=== PATIENT | male | born 1975 | race Caucasian/White ===

== ENCOUNTER 2022-07-24 08:30 | Emergency (ER) | payer BC, SELFPAY ==
[2022-07-24 08:43] VITALS: BP 142/94; PULSE 105; RESP 16; TEMP 36.4; O2SAT 98
--- NOTE | 2022-07-24 08:53 | ED.GENADULT ---
HPI - General Adult General Chief complaint: Upper Respiratory Infection Stated complaint: sore throat Source: patient Mode of arrival: ambulatory Limitations: no limitations History of Present Illness HPI narrative: Patient presents for evaluation of sore throat since yesterday. No fever, chills, nausea, vomiting, cough, shortness of breath. A child of his coworker had strep last week. He tried sudafed without considerable improvement in his symptoms thereafter. No additional complaints or concerns. Related Data Home Medications Medication Instructions Recorded Confirmed aspirin 81 mg tablet,delayed 81 mg PO DAILY 09/14/21 07/24/22 release (Adult Aspirin Regimen) cetirizine 10 mg tablet (Zyrtec) 10 mg PO DAILY PRN Allergy Symptoms 09/14/21 07/24/22 multivitamin 1 tablet PO DAILY 09/14/21 07/24/22 rosuvastatin 20 mg tablet (Crestor) 20 mg PO DAILY 09/14/21 07/24/22 Allergies Allergy/AdvReac Type Severity Reaction Status Date / Time No Known Allergies Allergy Verified 07/24/22 08:38 Review of Systems Review of Systems: CONSTITUTIONAL: Denies fever, chills, or sweats. EYES: Denies visual changes, redness, or discharge. ENT: Reports sore throat. Denies rhinorrhea, congestion, or otalgia. CARDIOVASCULAR: Denies chest pain, palpitations, or edema. RESPIRATORY: Denies cough or dyspnea. GASTROINTESTINAL: Denies abdominal pain, nausea, vomiting, or diarrhea. GENITOURINARY: Denies dysuria or hematuria. SKIN: Denies rash or itching. MUSCULOSKELETAL: Denies back pain, joint pain, or myalgia. NEUROLOGIC: Denies headache, numbness, dizziness, or weakness. PSYCHIATRIC: Denies anxiety or depression. [facility] Past Medical History Medical History No pertinent past medical history Surgical History Surgical History No pertinent past surgical history Family History Family History Mother Family history non-contributory Social History Social History Smoking status: Never smoker Substance use: never Gender identity (if verbalized by the patient): Male Spiritual care concerns: No Exam Narrative: GENERAL: Well-appearing, well-nourished, and in no acute distress. HEAD: Normocephalic, atraumatic. EYES: PERRLA and EOMI. ENT: Nares clear, no rhinorrhea or epistaxis. Mucous membranes moist. There is mild bilateral tonsillar enlargement without considerable erythema. No exudate. Uvula is midline. Bilateral TMs pearly peace nonbulging NECK: Supple. No adenopathy or masses. No carotid bruits or JVD CHEST: Clear to auscultation. No respiratory distress. No wheezes rales or rhonchi HEART: Regular rate and rhythm. No murmur heard. Normal peripheral pulses. ABDOMEN: Soft, nontender, nondistended, normal active bowel sounds. EXTREMITIES: Normal range of motion. No edema. SKIN: Warm, dry, no rash. NEURO: No focal deficits. Alert and oriented x3. PSYCH: Normal mood and affect. Course Course Emergency Course: This is a 46-year-old male who presented for evaluation of sore throat after recent strep exposure. Rapid strep was negative, although old treat with amoxicillin due to recent exposure. Increase hydration. [id number] agents for symptom management. Follow up with primary provider. Go to the ER for worsening symptoms. Patient in agreement with plan of care. Level of Care: Express Care Visit Vital Signs Vital signs: Vital Signs Temperature 36.4 C 07/24/22 08:43 Pulse Rate 105 H 07/24/22 08:43 Respiratory Rate 16 07/24/22 08:43 Blood Pressure 142/94 H 07/24/22 08:43 Pulse Oximetry 98 07/24/22 08:43 Temperature 36.4 C 07/24/22 08:43 Pulse Rate 105 H 07/24/22 08:43 Respiratory Rate 16 07/24/22 08:43 Blood Pressure 142/94 H 07/24/22
== END 2022-07-24 08:55 | disposition home or self-care (01) ==
PROVIDERS: Emergency Provider Nurse Practitioner; PCP Family Medicine
DX: J02.9 Acute pharyngitis, unspecified (principal); Z79.82 Long term (current) use of aspirin; Z20.828 Contact with and (suspected) exposure to other viral communicable diseases
CPT/HCPCS: 87081; 87880; 99213; G0463

== ENCOUNTER 2024-07-12 09:17 | Outpatient (CLI) | payer OTHER, SELFPAY ==
--- NOTE | 2024-07-12 09:19 | ECG_ITS ---
Test Date: 2024-07-12 09:57:18 Measurements Intervals [place] Rate: 73 P: 39 NH: 165 QRS: 77 QRSD: 87 T: 40 QT: 343 QTc: 379 Interpretive Statements SINUS RHYTHM No previous ECG available for comparison Electronically Signed On 07-15-2024 18:01:06 CITY DIRECTOR by Mariama Camacho M.D.
== END 2024-07-12 09:18 | disposition home or self-care (01) ==
LOC: ANHLAB 09:19
PROVIDERS: PCP Family Medicine; Visit Provider Anesthesiology
DX: E78.5 Hyperlipidemia, unspecified (principal); K40.90 Unilateral inguinal hernia, without obstruction or gangrene, not specified as recurrent; Z01.818 Encounter for other preprocedural examination
CPT/HCPCS: 36415; 86850; 86900; 86901; 93005

== ENCOUNTER 2024-07-16 01:22 | Day surgery (SDC) | payer OTHER, SELFPAY ==
[2024-07-10 09:28] VITALS: BMI 32.0
--- NOTE | 2024-07-10 09:34 | PC.NURSE ---
Report to the Outpatient Waiting Room, entrance under the green pavilion located off [facility], at time _0600_ on date _[id number]_. Planned Procedure Time: _0730_.? Time changes happen often and if your time is changed the preop area will call you the afternoon before. - You and your visitor will be asked to self-screen and do not enter if you have any COVID symptoms. Please call surgeon if you need to reschedule. - A mask is optional within the hospital at this time. Patients may have clear liquids (water, carbonated beverages, clear teas, apple juice) until 3 hours prior to surgery with a maximum of 20 ounces. - No food from midnight until time of surgery and no smoking. This includes no chewing gum, candy or mints. Take only the following medications with a SIP of water on the morning of surgery: ___None DO NOT STOP ANY OF YOUR OTHER PRESCRIPTION MEDICATIONS PRIOR TO SURGERY EXCEPT THE FOLLOWING Medications to discontinue per physician ____Multivitamin Date to take last knzg____[id number]___Ky to continue Aspirin but please call 's office about Mesalamine if Ok to take. Please no make-up, nail lebanese, hairspray, perfume, deodorant, or body powder the day of surgery.? No jewelry (including any body piercings) or valuables the day of surgery, leave them at home.? Please take a shower or bath the night before, or the morning of, surgery with an antibacterial soap.? Wear comfortable, loose fitting clothing.? - Jewelry must be removed prior to entering the operating room.? Rings and piercings that are not removed may be cut off. - The hospital will not accept responsibility for valuables.? - Please leave all valuables, including medications, at home the day of surgery. If you are going home after surgery, a licensed lease purchase driver must drive you home.? - NO public transportation without another adult if you receive anesthesia. - We recommend that an adult stay with you for 24 hours following discharge. - We also recommend that you do not drive, make important decision, drink alcoholic beverages, or take any drugs that were not prescribed by your health care provider for at least 24 hours after your discharge time. Follow any additional instructions given to you from your surgeon. Telephone instructions given to __David__and asked if any additional questions and then verbalized understanding. Patient advised to call surgeon office or pre surgery nurse liaison [phone] if any additional questions.
[2024-07-16] VITALS (9 sets, daily range): BP systolic 122–138; BP diastolic 71–82; PULSE 67–98; RESP 12–16; TEMP 36.1–36.3; O2SAT 95–99; BMI 32.4
--- NOTE | 2024-07-16 06:59 | WPDANESEPPF ---
Anes - Initial Pre Proc Eval Procedure: Operation Date: 07/16/24 07:30 Proposed Procedures p Laparoscopic Left Inguinal Hernia Repair with Mesh, Davinci Assisted - Tio Lira DO Date/Time: 07/16/24 06:59 Surgeon: Tio Lira DO Pre Op Diagnosis: Lt ing Hernia Patient Data Age: 48 Gender: M Height: 1.73 m Weight: 95.5 kg Allergies Allergy/AdvReac Type Severity Reaction Status Date / Time No Known Allergies Allergy Verified 07/10/24 09:27 Home Medications ?Medication ?Instructions ?Recorded ?Confirmed ?Type aspirin 81 mg tablet,delayed 81 mg PO DAILY 09/14/21 07/10/24 History release (Adult Aspirin Regimen) cetirizine 10 mg tablet (Zyrtec) 10 mg PO DAILY PRN Allergy Symptoms 09/14/21 07/10/24 History multivitamin 1 tablet PO DAILY 09/14/21 07/10/24 History mesalamine 1.2 gram tablet,delayed See Rx Instructions .Route 12/05/23 07/10/24 Rx release .COMPLEX #180 tabs rosuvastatin 20 mg tablet 20 mg PO DAILY #90 tabs 02/03/24 07/10/24 Rx Patient hx anesthesia problems: none Family hx anesthesia problems: none Results Review: All pre-operative results and documents have been reviewed as part of the pre-operative evaluation. [facility] Past Medical History Medical History Hyperlipidemia Abnormal fasting glucose Family history of heart disease Allergic rhinitis Irritable bowel syndrome Ulcerative colitis Surgical History Surgical History History of hernia repair 1994 at age 18 Family History Family History Mother Hypertension Vertigo Father Hypertension Pituitary tumor Heart disease Grandparent Acute myocardial infarction Heart disease Cerebrovascular accident Diabetes mellitus Congestive heart failure Sibling , Had heart attack at age 56 Acute myocardial infarction Social History Social History Smoking status: Never smoker Alcohol intake: current Drinks per week: 5 Substance use: never Do You Feel Safe in your Home?: Yes Lack of Transportation: No Lack of Food: Never True Current Housing: I Have Housing Difficulty Paying Gas/Electric Bills: No Difficulty Paying for Meds: No Currently Unemployed: No Education: Bachelor's Degree Difficulty w/ Childcare or Family Care: No Living arrangements: with family Occupation/Education: occupation 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 Gender identity (if verbalized by the patient): Male Sexual Orientation (if Verbalized by the Patient): Straight or Heterosexual Spiritual care concerns: No Anes - Eval Final PreProcedure Day of Procedure 07/16/24 06:59 Patient weight: obese Heart: regular rate and rhythm Lungs: clear to auscultation Airway: Mallampati scale class II Neurological: alert and oriented Last oral intake: >/= 8 hours ASA classification: III Emergent: no Anesthetic plan: proceed Anesthesia type and monitoring: general ETT and standard monitoring Results Review: All pre-operative results and documents have been reviewed as part of the pre-operative evaluation. Informed Consent: The patient's anesthetic plan and its attendant risks and benefits were discussed with the patient/family/POA. Questions were solicited and answers provided to the satisfaction of the patient/family/POA.
[2024-07-16] MEDS: LACTATED RINGERS 1,000 ML 30 ML IV CONT ×2 (07:00→08:32)
[2024-07-16] MEDS: KETOROLAC 15 MG/ML VIAL (*BKC) IV PUSH (07:07)
[2024-07-16] MEDS: ACETAMINOPHEN 500 MG TABLET 1000 MG PO (07:07)
--- NOTE | 2024-07-16 07:11 | WPDHPUPDATE1 ---
History and Physical Update Update Date/Time: 07/16/24 07:11 History and Physical has been reviewed, including an updated exam of the patient. There are NO changes in the patient's condition. Risks, benefits, and alternatives have been discussed and questions answered. Patient agrees to proceed with procedure.
--- NOTE | 2024-07-16 07:11 | PM.IMHP ---
H&P: HPI History of Present Illness Date/Time: 07/16/24 07:11 Chief Complaint: LIH Narrative: 48 yo man presents for LIH repair. He reports no changes since last seen in office. Review of Systems Review of Systems: All systems reviewed & are unremarkable except as noted in HPI and below Constitutional: Constitutional: Denies chills, Denies fever(s), Denies headache(s) and Denies weight loss Eyes: Eyes: Denies change in vision ENT: Denies dizziness, Denies headache(s), Denies neck mass and Denies throat swelling Cardiovascular: Cardiovascular: Denies chest pain, Denies lightheadedness and Denies dyspnea Respiratory: Respiratory: Denies cough, Denies dyspnea and Denies wheezing Gastrointestinal: Gastrointestinal: Denies abdominal pain, Denies change in bowel habits, Denies nausea and Denies vomiting Genitourinary: Genitourinary: Denies hematuria and Denies dysuria Musculoskeletal: Musculoskeletal: Reports as per HPI Integumentary/Breasts: Skin/Breast: Reports as per HPI Neurologic: Denies dizziness and Denies headache(s) Allergic/Immunologic: Allergic/Immunologic: Denies throat swelling and Denies wheezing [facility] Past Medical History Medical History Hyperlipidemia Abnormal fasting glucose Family history of heart disease Allergic rhinitis Irritable bowel syndrome Ulcerative colitis Surgical History Surgical History History of hernia repair 1993 at age 18 Family History Family History Mother Hypertension Vertigo Father Hypertension Pituitary tumor Heart disease Grandparent Acute myocardial infarction Heart disease Cerebrovascular accident Diabetes mellitus Congestive heart failure Sibling , Had heart attack at age 56 Acute myocardial infarction Social History Social History Smoking status: Never smoker Alcohol intake: current Drinks per week: 5 Substance use: never Do You Feel Safe in your Home?: Yes Lack of Transportation: No Lack of Food: Never True Current Housing: I Have Housing Difficulty Paying Gas/Electric Bills: No Difficulty Paying for Meds: No Currently Unemployed: No Education: Bachelor's Degree Difficulty w/ Childcare or Family Care: No Living arrangements: with family Occupation/Education: occupation 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 Gender identity (if verbalized by the patient): Male Sexual Orientation (if Verbalized by the Patient): Straight or Heterosexual Spiritual care concerns: No Meds Home Medications and Allergies Home Medications ?Medication ?Instructions ?Recorded ?Confirmed ?Type aspirin 81 mg tablet,delayed 81 mg PO DAILY 09/14/21 07/10/24 History release (Adult Aspirin Regimen) cetirizine 10 mg tablet (Zyrtec) 10 mg PO DAILY PRN Allergy Symptoms 09/14/21 07/10/24 History multivitamin 1 tablet PO DAILY 09/14/21 07/10/24 History mesalamine 1.2 gram tablet,delayed See Rx Instructions .Route 12/05/23 07/10/24 Rx release .COMPLEX #180 tabs rosuvastatin 20 mg tablet 20 mg PO DAILY #90 tabs 02/03/24 07/10/24 Rx Allergies Allergy/AdvReac Type Severity Reaction Status Date / Time No Known Allergies Allergy Verified 07/10/24 09:27 Exam Const: General: no acute distress and alert Orientation/consciousness: patient oriented x3 HENMT: Head: normocephalic and atraumatic Ears: hearing grossly normal bilaterally Face/Nose/Sinus: Normal nares present Mouth: Yes Normal oral and palatal mucosa present Eyes: Periorbital: periorbital findings normal Sclera: sclerae normal EOM: EOMs intact bilaterally Neck: Neck: normal visual inspection, no lymphadenopathy and trachea midline Chest: Chest palpation & inspection: normal inspection of the chest Resp: Effort & Inspection: normal respiratory effort Auscultation: clear to auscultation bilaterally Cardio: Jugular venous distension: no JVD Rate: regular rate Rhythm: regular rhythm Heart sounds: S1 normal heart sound present and S2 normal heart sound present Peripheral pulses: Peripheral pulses 2+ throughout GI: Inspection: normal to inspection GI Palp: Yes Soft to palpation, No Tenderness to palpation present (GI), No Guarding due to palpation present (GI) and No Rebound tenderness present Percussion: Yes normal to percussion Auscultation: normal bowel sounds : General: Yes no CVA tenderness Scrotum: inguinal hernia on the left Back/Spine/Pelvis: Back: no CVA tenderness Neuro: General: patient oriented x3, no focal motor deficits and CN's II-XI intact bilaterally Cognition (Neuro): normal cognition Speech: normal speech Motor exam (neuro): 5/5 motor strength present throughout Extrem: General: capillary refill normal and no clubbing, cyanosis or edema Assessment and Plan Assessment and plan (1) Left inguinal hernia: Code(s): K40.90 - Unilateral inguinal hernia, without obstruction or gangrene, not specified as recurrent Status: Acute Assessment and Plan: I have recommended laparoscopic left inguinal hernia repair with mesh, da shannon assisted. I have discussed the procedure, risks, benefits, and alternatives with the patient. All questions answered. No changes since last seen in office.
[2024-07-16] MEDS: ceFAZolin 2 GM/D5W 50 ML 2 GM/50 ML BAG IVPB (07:25)
[2024-07-16] MEDS: BUPIVACAINE/EPINEPHRINE 0.5% 10 ML VIAL 30 ML INFILTRATE (07:54)
--- NOTE | 2024-07-16 08:45 | P.OP_ITS ---
Procedure Note - Detailed Date of Procedure 07/16/24 Pre-op Diagnosis Left inguinal hernia Post-op Diagnosis Same (Pantaloon left inguinal hernia) Procedure Performed Laparoscopic left inguinal hernia repair with mesh, da Jatinder assisted Surgeon Tio Lira DO Anesthesia General and Local (0.5% bupivacaine with epinephrine) Indications This is a 48-year-old man who presented with a left inguinal hernia. He 1st noticed symptoms about 3 months ago. He had a noticeable bulge and slight discomfort associated with it. He denies any recent injuries that would have caused this. He was found to have a reducible left inguinal hernia on exam. Discussions were made with the patient about treatment options and decision was made to proceed with robotic assisted laparoscopic left inguinal hernia repair with mesh. Findings Robotic assisted laparoscopic left inguinal hernia repair with mesh was performed. The patient was found have a pantaloon left inguinal hernia. He had a small indirect component but a slightly larger direct component to this hernia. There was no evidence of a right inguinal hernia. A robotic transabdominal preperitoneal approach was utilized for repair of the left inguinal hernia. Once a wide enough preperitoneal pocket was created and the hernia sac was reduced, I then placed a large left 3DMax mid mesh overlying the entire left myopectineal orifice. No specimens were obtained for pathology. Description of Procedure Procedure as well as risks, benefits, and alternatives were discussed with the patient. Written consent was obtained and placed in chart prior to procedure. Patient was brought back to surgical suite. He was placed supine on operating table. Time-out was done to confirm patient and procedure. He was then intubated by Anesthesia Department. His abdomen was prepped and draped in sterile fashion using chlorhexidine prep. 0.5% bupivacaine with epinephrine was infiltrated at each location for incision. An 8 mm incision was made in the left lateral abdomen, and a 5 mm Optiview trocar was advanced through the abdominal layers under direct visualization. Once inside the abdominal cavity, carbon dioxide insufflation was used to create a pneumoperitoneum. A camera was inserted and the abdominal cavity was inspected. The patient was placed in slight Trendelenburg position. An 8 millimeter incision was made on the right lateral abdomen and an 8 millimeter trocar was inserted under direct visualization. Another 8 millimeter incision was made just superior to the umbilicus and an 8 millimeter trocar was inserted under direct visualization. The 5 mm port was then removed and this was replaced with another 8 mm robotic port. The robotic arms were brought up to the patient's bedside and secured to the ports. The camera and instruments were inserted. I then moved over to the robotic console and took control of the camera and instruments. After careful inspection of the abdominal cavity, I began scoring the peritoneum along the l eft lower quadrant using scissors with electrocautery. The preperitoneal plane was entered and this was carefully dissected caudally along the inferior epigastric vessels. Careful dissection with scissors with electrocautery and blunt dissection was used to continue this dissection. I dissected far enough laterally to allow for mesh placement, and also dissected medially to identify the pubic arch and Heath's ligament. The hernia sac was identified and carefully dissected posteriorly. The cord contents were also identified and the peritoneum was carefully dissected far enough posteriorly to allow for mesh placement. Once an adequate pocket was created, I then placed the mesh within the preperitoneal pocket and carefully unfolded it. The mesh was centered on the hernia defect with adequate overlap circumferentially. The inferior edge of the mesh was inspected to ensure that it was far enough away from the peritoneal edge. The mesh appeared in proper position overlying the entire myopectineal orifice. The mesh was secured using 3-0 Vicryl simple interrupted sutures in Heath's ligament, the superior medial edge, and superior lateral edge of the mesh. The peritoneum was then closed over the mesh using a 3-0 V-lock running absorbable suture. The robotic instruments were removed. The robotic arms were disengaged from the ports and moved away from the bedside. The patient was flattened out in bed, the ports were removed under direct visualization, and the pneumoperitoneum was released. The skin of the incisions was approximated using 4-0 Monocryl subcuticular suture, and Exofin glue was applied on top. The patient was awakened from anesthesia, extubated, and transferred to recovery. Implants Large left 3DMax mid mesh Estimated Blood Loss 5 Complications No immediate complications Condition Stable Disposition Same day [facility] Billing Surgery - Charge Forward: Surgery Billing
[2024-07-16] MEDS: fentaNYL CITRATE INJ (*CRX) 100 MCG/2 ML VIAL 25 MCG IV PUSH (08:53)
--- NOTE | 2024-07-16 09:48 | SUR.PHASEII ---
MD Shore contacted - pt requesting oxycodone prior to discharge. Pt order is currently for 5mg liquid PO. New orders for RN to give oxycodone 5mg PO in tablet form per pt preference.
[2024-07-16] MEDS: oxyCODONE HCL (*CRX) 5 MG TAB IR PO (09:58)
--- NOTE | 2024-07-16 10:13 | SUR.PHASEII ---
MD Lira contacted in OR - pt pharmacy ([facility] in [place]) states that they are out of stock of pain prescription. Patient requests that pain prescription be transferred to [facility] in [place], [place] instead.
--- NOTE | 2024-07-16 10:14 | SUR.PHASEII ---
Pt ambulated to bathroom and voided unmeasured amt of clear yellow urine without difficulty.
== END 2024-07-16 10:37 | disposition home or self-care (01) ==
PROVIDERS: PCP Family Medicine; Visit Provider Surgery
PROC: 8E0Y4CZ Robotic Assisted Procedure of Lower Extremity, Percutaneous Endoscopic Approach (ICD-10-PCS; CPT 49650; principal; 2024-07-16 07:30)
DX: K40.90 Unilateral inguinal hernia, without obstruction or gangrene, not specified as recurrent (principal); E78.5 Hyperlipidemia, unspecified; K58.9 Irritable bowel syndrome, unspecified; E66.9 Obesity, unspecified; Z68.32 Body mass index [BMI] 32.0-32.9, adult; Z79.82 Long term (current) use of aspirin; Z98.890 Other specified postprocedural states; Z87.19 Personal history of other diseases of the digestive system; Z82.49 Family history of ischemic heart disease and other diseases of the circulatory system
CPT/HCPCS: 49650; S2900; 36415; 86850; 86900; 86901; 93005; A9270; C1781; J0690; J1100; J1885; J2250; J2405; J2704; J3010; J7030; J7120

== ENCOUNTER 2024-09-28 10:23 | Emergency (ER) | payer OTHER, SELFPAY ==
[2024-09-28 11:00] LABS: EDCOVIDSCREEN Negative (Negative); EDINFLUASCREEN Negative (Negative); EDINFLUBSCREEN Negative (Negative)
--- NOTE | 2024-09-28 11:14 | ED.GENADULT ---
HPI - General Adult General Chief complaint: Upper Respiratory Infection Stated complaint: CONSTION/SORE THROAT/EARS/FEVER Time Seen by Provider: 09/28/24 11:15 Source: patient Mode of arrival: ambulatory Limitations: no limitations History of Present Illness HPI narrative: 48-year-old male patient presents to [facility] with complaints of cold symptoms for the past 4-5 days. Patient states he was running a low-grade fever on Sunday but seemed to a broken on Sunday and has not returned. Patient does complain of congestion, runny nose, feeling like his ears are full. Patient states a slight cough sore throat denies any chest pain or shortness of breath. Denies any abdominal pain, nausea, vomiting or diarrhea. Patient states he does take Zyrtec daily and has been taking some [id number] Sudafed for his symptoms. Related Data Home Medications ?Medication ?Instructions ?Recorded ?Confirmed ?Last Taken ?Type aspirin 81 mg tablet,delayed 81 mg PO DAILY 09/14/21 09/28/24 07/15/24 History release (Adult Aspirin Regimen) cetirizine 10 mg tablet (Zyrtec) 10 mg PO DAILY PRN Allergy Symptoms 09/14/21 09/28/24 Unknown History multivitamin 1 tablet PO DAILY 09/14/21 09/28/24 07/13/24 History Allergies Allergy/AdvReac Type Severity Reaction Status Date / Time No Known Allergies Allergy Verified 09/28/24 10:40 Review of Systems Review of Systems: CONSTITUTIONAL: Positive low-grade fever, denies chills, or sweats. EYES: Denies visual changes, redness, or discharge. ENT: positive rhinorrhea, congestion, sore throat, positive bilateral otalgia. CARDIOVASCULAR: Denies chest pain, palpitations, or edema. RESPIRATORY: positive mild cough denies dyspnea. GASTROINTESTINAL: Denies abdominal pain, nausea, vomiting, or diarrhea. GENITOURINARY: Denies dysuria or hematuria. SKIN: Denies rash or itching. MUSCULOSKELETAL: Denies back pain, joint pain, or myalgia. NEUROLOGIC: Denies headache, numbness, or weakness. PSYCHIATRIC: Denies anxiety or depression. [facility] Past Medical History Medical History Hyperlipidemia Abnormal fasting glucose Family history of heart disease Allergic rhinitis Irritable bowel syndrome Ulcerative colitis Surgical History Surgical History H/O left inguinal hernia repair 07/16/24 Laparoscopic left inguinal hernia repair with mesh, da Jatinder assisted Dr. Lira History of hernia repair 1993 at age 18 Family History Family History Mother Hypertension Vertigo Father Hypertension Pituitary tumor Heart disease Grandparent Acute myocardial infarction Heart disease Cerebrovascular accident Diabetes mellitus Congestive heart failure Sibling , Had heart attack at age 56 Acute myocardial infarction Social History Social History Smoking status: Never smoker Alcohol intake: current Drinks per week: 5 Substance use: never Do You Feel Safe in your Home?: Yes Lack of Transportation: No Lack of Food: Never True Current Housing: I Have Housing Difficulty Paying Gas/Electric Bills: No Difficulty Paying for Meds: No Currently Unemployed: No Education: Bachelor's Degree Difficulty w/ Childcare or Family Care: No Living arrangements: with family Occupation/Education: occupation Additional occupation/education comments: 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 There is no relevant family history pertinent to the presenting complaint. Exam Narrative: GENERAL: Well-appearing, well-nourished, and in no acute distress. HEAD: Normocephalic, atraumatic. EYES: PERRLA and EOMI. ENT: Nares with erythema edema noted bilaterally with the right ear swollen shut, no rhinorrhea or epistaxis. Mucous membranes moist. posterior pharynx with erythema and white patches noted bilaterally. Bilateral TMs do appear injected with fluid behind them. NECK: Supple. No lymphadenopathy CHEST: Clear to auscultation. No respiratory distress. HEART: Regular rate and rhythm. No murmur heard. Normal peripheral pulses. ABDOMEN: Soft, nontender, nondistended, normal active bowel sounds. EXTREMITIES: Normal range of motion. No edema. SKIN: Warm, dry, no rash. NEURO: No focal deficits. Alert and oriented x3. Course Course Level of Care: Express Care Visit Vital Signs Vital signs: Vital signs reviewed. Medical Decision Making MDM Narrative Medical decision making narrative: Discussed with patient that his influenza and flu point of care test did come back negative however based on his physical exam we will also swab him for strep today. I will reassess him once this has resulted. Differential Diagnosis Differential Diagnosis: Differential diagnosis: Allergic rhinitis, chronic sinusitis, tonsillitis, acute sinusitis, infectious mononucleosis, seasonal influenza, pertussis, diphtheria, meningococcal disease, viral syndrome, viral bronchitis, RSV, COVID-19 Lab Data Labs: Lab Results 09/28/24 Range/Units 10:58 POC Influenza A Ag Negative (Negative) POC Influenza B Ag Negative (Negative) POC SARS CoV-2 Ag Negative (Negative) Discharge Plan Discharge Clinical Impression: Viral URI, Exudative pharyngitis Patient Disposition: Home, Self-Care Condition: Stable Instructions: Antibiotic Form, Cold Symptoms (ED) Additional Instructions: Viral illness may last between 7-12days; antibiotic is NOT recommended at this time. Recommend antihistamine such as Benadryl at night time and Claritin/Zyrtec/Abigail during the day Cough syrup may cause drowsiness; avoid driving or take it at night time. Also, recommend symptomatic treatment includes: rest, fluids, and increase humidity of the air at home. Recommend Acetaminophen or nonsteroidal anti-inflammatory agents (NSAIDs) as directed in the bottle to reduce fever and/pain/headache. Avoid smoking/second-hand smoke. Limit visits to areas with large crowds. Please schedule a follow-up visit with your personal physician for further evaluation and treatment within 3-5days. Including recheck and discussion of your blood pressure. If your symptoms persist, change or worsen significantly before you can contact your personal physician then please, without delay, go to the emergency department for further evaluation. A sore throat can be caused by an infection from a virus or bacteria. Sore throat can also be caused by postnasal drip, allergies, and exposure to smoke. A viral sore throat last 3-4 days and cannot be treated with antibiotics. One type of sore throat virus, infectious mononucleosis ( mono ), can last for 3 weeks and older children. The germs that cause these infections are contagious and can be spread by coughing or sharing drinks or utensils. Contact her primary care physician or go to the ER if: Your trouble breathing or swallowing because her throat is swollen or sore. You're drooling because it hurts too much to swallow. You're painful lump in your throat go away after 5 days. You're fever is higher than 10 2??F or last longer than 3 days. You have confusion. You are blood in your throat. You're sore throat should feel better within 3-5 days without treatment if it is caused by virus. You may need the following: Ibuprofen or Tylenol as needed for pain or fever Gargle warm salt water Drink more liquids, cold or warm drinks may help soothe her throat. Humidifier in your room. Cough drops, ice, soft foods, or popsicles may help soothe her throat. A spoonful of honey could help with inflammation and soothe her throat. Wash her hands with soap and water, do not share food or drinks, throat away her toothbrush after 72 hours. Patient Language: [place] Prescriptions: New methylprednisolone 4 mg tablets,dose pack See Rx Instructions PO .COMPLEX Qty: 21 0RF Rx Instructions: for 6 days No Action aspirin [Adult Aspirin Regimen] 81 mg tablet,delayed release (DR/EC) 81 mg PO DAILY cetirizine [Zyrtec] 10 mg tablet 10 mg PO DAILY PRN (Reason: Allergy Symptoms) multivitamin Tablet 1 tablet PO DAILY mesalamine 1.2 gram tablet,delayed release (DR/EC) See Rx Instructions .ROUTE .COMPLEX Qty: 180 6RF Dose Instruction: TAKE 2 TABLETS BY MOUTH DAILY Rx Instructions: TAKE 2 TABLETS BY MOUTH DAILY rosuvastatin 20 mg tablet 20 mg PO DAILY Qty: 90 1RF Follow-up/Referrals: Pipe Go MD [Primary Care Provider] - Time of Disposition: 11:30
[2024-09-28 11:32] LABS: EDSTREPNEGPOS1 Negative (Negative)
== END 2024-09-28 11:35 | disposition home or self-care (01) ==
PROVIDERS: Emergency Provider Nurse Practitioner Family; PCP Family Medicine
DX: J06.9 Acute upper respiratory infection, unspecified (principal); J02.9 Acute pharyngitis, unspecified; Z20.822 Contact with and (suspected) exposure to COVID-19; E78.5 Hyperlipidemia, unspecified; Z79.82 Long term (current) use of aspirin
CPT/HCPCS: 87081; 87426; 87804; 87880; 99213; G0463